=== PATIENT | female | born 1960 | race Caucasian/White ===

== ENCOUNTER 2021-06-02 10:40 | Outpatient (CLI) | payer OTHER, SELFPAY ==
--- NOTE | ~2021-06-02 | MM_ITS ---
EXAMINATION: MM screening miryam BI w augusto HISTORY: Screening TECHNIQUE: Craniocaudal and mediolateral oblique 3-D tomosynthesis images were obtained and synthetic 2-D images were generated. CAD analysis was submitted and interpreted. COMPARISON: No prior mammogram is available for comparison at this institution. BREAST PARENCHYMAL COMPOSITION: There are scattered areas of fibroglandular density. FINDINGS: There is no evidence of suspicious mass, calcification, or architectural distortion to sugg est malignancy in either breast. There has been no suspicious interval change. IMPRESSION: 1. No mammographic evidence of malignancy. 2. Recommend routine screening mammography in one year. BI-RADS Category 1: Negative Reviewed, dictated and finalized at location A. [facility] TECHNICIAN
== END 2021-06-02 10:41 | disposition home or self-care (01) ==
LOC: ANHIMG 10:44
PROVIDERS: PCP Family Medicine; Visit Provider Family Medicine
DX: Z12.31 Encounter for screening mammogram for malignant neoplasm of breast (principal)
CPT/HCPCS: 77063; 77067

== ENCOUNTER 2024-07-12 12:57 | Emergency (ER) | payer OTHER, SELFPAY ==
--- NOTE | 2024-07-12 13:05 | ED_ITS ---
HPI - URI/Sore Throat General Chief Complaint: Upper Respiratory Infection Stated Complaint: cough and chest pain Source: patient Mode of arrival: ambulatory Limitations: no limitations History of Present Illness HPI Narrative: 63-year-old female presented for complaint of painful cough, sore throat, body aches and fatigue. Onset yesterday. Reports history of bronchitis and says this feels similar. Denies shortness of breath, wheezing, nausea, vomiting, diarrhea, fevers. Related Data Allergies Allergy/AdvReac Type Severity Reaction Status Date / Time No Known Allergies Allergy Verified 07/12/24 13:09 Review of Systems Review of Systems: per HPI All systems reviewed & are unremarkable except as noted in HPI and below PMFSH Comments At time of signature, I have reviewed and agree with nursing past medical, surgical, social and family history unless otherwise noted. Please see nursing chart for further information. There is no relevant family history pertinent to the presenting complaint Exam Narrative: GENERAL: Well-appearing, in no acute distress. EYES: EOMI. No redness or drainage. Conjunctivae normal. ENT: Mucous membranes pink and moist. No rhinorrhea. TMs normal bilaterally. Throat normal. Uvula midline. NECK: Normal AROM. Supple. CHEST: No respiratory distress lungs clear to all vargas. HEART: Regular rate and rhythm. SKIN: Warm, dry, no rash. Capillary refill normal. Normal skin turgor. NEURO: Alert and oriented x3. Gait steady. PSYCH: Normal affect. Course Course Emergency Course: Patient is aware of diagnosis, understands and agrees to treatment plan. Anticipatory guidance given. Patient agrees to follow-up as directed and is aware of reasons to seek care at the emergency department. Portions of this record may have been created with voice recognition software Level of Care: Express Care Visit Vital Signs Vital signs: Vital Signs Temperature 98.0 F 07/12/24 13:10 Pulse Rate 80 07/12/24 13:10 Respiratory Rate 16 07/12/24 13:10 Blood Pressure 179/95 H 07/12/24 13:10 Pulse Oximetry 98 07/12/24 13:10 Oxygen Delivery Room Air 07/12/24 13:10 Temperature 98.0 F 07/12/24 13:10 Pulse Rate 80 07/12/24 13:10 Respiratory Rate 16 07/12/24 13:10 Blood Pressure 179/95 H 07/12/24 13:10 Pulse Oximetry 98 07/12/24 13:10 Oxygen Delivery Room Air 07/12/24 13:10 MDM - URI/Sore Throat MDM Narrative Medical decision making narrative: POS flu. Discussed physical exam findings. Advised supportive measures and signs/symptoms to go to the ER. Pt is appropriate for outpt treatment and f/u. Differential Diagnosis Differential diagnosis: Likely upper respiratory infection, sinusitis, viral infection, bronchitis, influenza and pharyngitis Discharge Plan Discharge Clinical Impression: Influenza Patient Disposition: Home, Self-Care Condition: Stable Instructions: Influenza (ED) Additional Instructions: Influenza positive You should avoid crowds until you are fever free for 24 hours without the use of fever reducing medications, or the symptoms are improved Rest. Drink plenty of fluids. Tylenol 1000mg every 8 hours as needed for pain/fever Recommend Flonase spray and Zyrtec (or Claritin/Elyssa) for sinus pressure/congestion over the counter Cough syrup may cause drowsiness; avoid driving or take it at night time. Follow up with your primary care provider as needed Go to the ER for worsening symptoms or concerns Patient Language: Singaporean Prescriptions: New prednisone 50 mg tablet 50 mg PO DAILY Qty: 5 0RF albuterol sulfate 90 mcg/actuation HFA aerosol inhaler 2 inh inhalation QID PRN (Reason: shortness of breath or wheezing) Qty: 8.5 0RF Follow-up/Referrals: PHYSICIAN,TENSILE TESTER [Primary Care Provider] -
[2024-07-12 13:10] VITALS: BP 179/95; PULSE 80; RESP 16; TEMP 36.7; O2SAT 98
[2024-07-12 13:37] LABS: EDCOVIDSCREEN Negative (Negative); EDINFLUASCREEN Positive (Negative); EDINFLUBSCREEN Negative (Negative)
--- OUTSIDE RECORDS SUMMARY | 2024-07-12 15:25 | XMS_ITS | Encounter Summary ---
Author Organization [facility] Address [address] [place] [address] Care Team Providers Care Artificial Breeding Distributor Name Role Phone William Lea MD Primary Care Provider [phone] Priscilla Rice MD Primary Care Provider Reason for Referral * Surgical (Routine) - Closed Specialty Diagnoses / Procedures Referred By Contjasmyn t Referred To Contact Procedures Case request operating room: INJECTION EPIDURAL STEROID CERVICAL [id number] Amanda Cortez MD [facility] [address] [place] [address] Phone: tel: fax: Referral ID Status Reason Start Date Expiration Date Visits Re quested Visits Authorized [id number] Closed 01/01/2019 02/02/2020 1 1 Encounter Details Date Type Department Care Team (Late st Contact Info) Description 01/01/2019 Prep for Procedure [facility] [place], [place] [id number] Amanda Cortez MD [facility] [address] [place] [id number] Social History Tobacco Use Types Packs/Day Years Used Date Smoking Tobacco: Never Smokeless Tobacco: Never Alcohol Use Standard Drinks/Week Comments No 0 (1 standard drink = 0.6 oz pur e alcohol) Comments No Sex and Gender Information Value Date Recorded Sex Assigned at Not on file Legal Sex Female 7:45 PM CDT Gender Identity Not on file Sexual Orientation Not on file 

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
--- OUTSIDE RECORDS SUMMARY | 2024-07-12 15:25 | XMS_ITS | Data Portability ---
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 Discussed etiology of condition Continue with alternative lacing technique to avoid pressure to the area, done for her to her shoes Continue with supportive shoes. she is to try to wear her custom foot orthotics, or an OTC insert from a running shoe store recommened [employer], printed locations that sell them 1 cc of 0.25% sensorcaine 1 CC of Triamcilone 40 to right left foot TMT 2 Discussed icing to the area Follow up in 6 weeks [id number] [email or web address] Not available 03/28/2021 17:11:36 Plan of Treatment Reminders Order Date Submit Date Provider Last Modified By Organization Details Last Modified Time Details Appointments None recorded. Lab pap, IG + HR HPV 2022 023 [facility], [address], [address], [place], [address], 3 17:11:01 drug screen, 14 drugs (detectime d), urine 2022 023 [facility], [address] [address], [place], [address], 3 11:14:19 BMP, serum or plasma 2022 023 [facility], [address], [place], [address], 3 01:07:33 lipid panel, serum 2022 023 [facility], [address], [address], [place], [address], 3 11:14:18 CBC w/ auto diff 2022 023 [facility], [address], [address], [place], [address], 3 01:07:33 HbA1c (hemoglobi n A1c), blood 2022 023 [facility], [address], [address], [place], [address], 3 11:14:19 TSH, ultra-sens itive, serum 2022 023 [facility], [address], [address], [place], [address], 3 11:14:17 CMP, serum or plasma 2020 021 [facility], [address], [address], [place], [address], 1 17:00:19 CBC w/ auto diff 2020 021 [facility], [address], [address], [place], [address], 17:00:18 lipid panel, serum 2020 021 [facility], [address], [address], [place], [address], 17:00:19 HbA1c (hemoglobi n A1c), blood 2020 021 [facility], [address], [address], [place], [address], 1 17:00:18 vitamin D, 25-hydroxy , total, serum 2020 021 [facility], [address], [place], [address], 17:00:19 unlisted lab - TSH w/reflex 2020 [facility], [address], [address], [place], [address], 17:00:18 Referral otolaryngo logist referral - Please eval and treat 62 year old female with violaceous mass under tongue x 3-4 months. 2022 023 [facility], [address], [place], [address], 3 14:46:42 Procedures None recorded. Surgeries None recorded. Imaging CT, chest + abdomen + pelvis, w/wo contrast - epigastric bulge, abd pain. 2022 023 [facility] (Imaging), [address] [facility] [address], [place], [address], 3 10:16:21 MAMMO, screening, digital, bilateral 2022 023 [facility] (Imaging), [address], [place], [address], 3 11:20:44 Medication Orders amlodipine 5 mg tablet [address] [facility], [address] [facility] [address], [place], [address], 3 11:22:06 amlodipine 2.5 mg tablet 2022 023 [email or web address] [facility], [address] [facility] , [place], [address], 3 14:13:01 tramadol 50 mg tablet 2022 023 [email or web address] [facility], [address] [facility] [address], [place], [address], 3 15:05:43 Sensorcain e 0.5 % (5 mg/mL) injection solution 2020 021 [email or web address] Not available 3 10:48:41 Sensorcain e 0.5 % (5 mg/mL) injection solution 2020 021 [email or web address] Not available 3 10:48:41 Kenalog 40 mg/mL suspension for injection 2020 021 [email or web address] Not available 3 10:48:39 Kenalog 40 mg/mL suspension for injection 2020 021 [email or web address] Not available 3 10:48:39 Patient TargetsNo targets recorded. 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 Referring Physician: Linda Maradiaga, Hospital Social Worker, Encounter Date: 01/21/2023 Results Created Date Observation Date Name Description Value Unit Range Abnormal Flag Note LastModifiedBy Organization Detail LastModifiedTime 01/22/20 23 01/22/2023 BASIC METAB OLIC PANEL (8) glucose 93 mg/dL 70-99 Not Available [facility] [address] [place], [address], 01/22/2023 01:07:32 01/22/20 23 01/22/2023 BASIC METAB OLIC PANEL (8) BUN 20 mg/dL 8-27 Not Available [facility] [address] [place], [address], 01/22/2023 01:07:32 01/22/20 23 01/22/2023 BASIC METAB OLIC PANEL (8) creatinine 0.76 mg/dL 0.76-1 .27 Not Available [facility] [address] [place], [address], 01/22/2023 01:07:32 01/22/20 23 01/22/2023 BASIC METAB OLIC PANEL (8) eGFR 90 >=60 Units for eGFR value s are mL/mi n/1.7 3 The eGFR Calcu latio n has not been valid ated for patie nts under the age of 18. If test resul ts are displ ayed for a patie nt under the age of 18, disre eleanor that value . Not Available [facility] [address] [place], [address], 01/22/2023 01:07:32 01/22/20 23 01/22/2023 BASIC METAB OLIC PANEL (8) BUN/creatini ne ratio 27 10-28 Not Available [facility] [address] [place], [address], 01/22/2023 01:07:32 01/22/20 23 01/22/2023 BASIC METAB OLIC PANEL (8) sodium 143 mmol/ L 134-14 4 Not Available [facility] [address] [place], [address], 01/22/2023 01:07:32 01/22/20 23 01/22/2023 BASIC METAB OLIC PANEL (8) potassium 4.3 mmol/ L 3.5-5. 2 Not Available [facility] [address] [place], [address], 01/22/2023 01:07:32 01/22/20 23 01/22/2023 BASIC METAB OLIC PANEL (8) chloride 102 mmol/ L 96-106 Not Available [facility] [address] [place], [address], 01/22/2023 01:07:32 01/22/20 23 01/22/2023 BASIC METAB OLIC PANEL (8) carbon dioxide, total 26 mmol/ L 20-29 Not Available [facility] [address] [place] [address], [address], 01/22/2023 01:07:32 01/22/20 23 01/22/2023 BASIC METAB OLIC PANEL (8) calcium 9.8 mg/dL 8.7-10 .3 Not Available [facility] [address] [place] [address], [address], 01/22/2023 01:07:32 01/22/20 23 01/21/2023 CBC WITH DIFFE RENTI AL/PL ATELE T WBC 6.0 x10e3 /uL 3.4-10 .8 Not Available [facility] [address] [place], [address], 01/22/2023 01:07:33 01/22/20 23 01/21/2023 CBC WITH DIFFE RENTI AL/PL ATELE T RBC 4.13 x10e6 /uL 3.77-5 .28 Not Available [facility] [address] [place] [address], [address], 01/22/2023 01:07:33 01/22/20 23 01/21/2023 CBC WITH DIFFE RENTI AL/PL ATELE T hemoglobin 12.9 g/dL 11.1-1 5.9 Not Available [facility] [address] [place], [address], 01/22/2023 01:07:33 01/22/20 23 01/21/2023 CBC WITH DIFFE RENTI AL/PL ATELE T hematocrit 40.0 % 34.0-4 6.6 Not Available [facility] [address] [place], [address], 01/22/2023 01:07:33 01/22/20 23 01/21/2023 CBC WITH DIFFE RENTI AL/PL ATELE T MCV 97 fL 79-97 Not Available [facility] [address] [place], [address], 01/22/2023 01:07:33 01/22/20 23 01/21/2023 CBC WITH DIFFE RENTI AL/PL ATELE T MCH 31.2 pg 26.6-3 3.0 Not Available [facility] [address] [place], [address], 01/22/2023 01:07:33 01/22/20 23 01/21/2023 CBC WITH DIFFE RENTI AL/PL ATELE T MCHC 32.3 g/dL 31.5-3 5.7 Not Available [facility] [address] [place], [address], 01/22/2023 01:07:33 01/22/20 23 01/21/2023 CBC WITH DIFFE RENTI AL/PL ATELE T RDW 12.3 % 11.5-1 4.5 Not Available [facility] [address] [place], [address], 01/22/2023 01:07:33 01/22/20 23 01/21/2023 CBC WITH DIFFE RENTI AL/PL ATELE T platelets 297 x10e3 /uL 150-45 0 Not Available [facility] [address] [place], [address], 01/22/2023 01:07:33 01/22/20 23 01/21/2023 CBC WITH DIFFE RENTI AL/PL ATELE T neutrophils 57 % notest b. Not Available [facility] [address] [place], [address], 01/22/2023 01:07:33 01/22/20 23 01/21/2023 CBC WITH DIFFE RENTI AL/PL ATELE T lymphs 33 % notest b. Not Available [facility] [address] [place], [address], 01/22/2023 01:07:33 01/22/20 23 01/21/2023 CBC WITH DIFFE RENTI AL/PL ATELE T monocytes 8 % notest b. Not Available [facility] [address] [place], [address], 01/22/2023 01:07:33 01/22/20 23 01/21/2023 CBC WITH DIFFE RENTI AL/PL ATELE T eos 1 % notest b. Not Available [facility] [address] [place], [address], 01/22/2023 01:07:33 01/22/20 23 01/21/2023 CBC WITH DIFFE RENTI AL/PL ATELE T basos 1 % notest b. Not Available [facility] [address] [place], [address], 01/22/2023 01:07:33 01/22/20 23 01/21/2023 CBC WITH DIFFE RENTI AL/PL ATELE T neutrophils (absolute) 3.4 x10e3 /uL 1.4-7. 0 Not Available [facility] [address] [place], [address], 01/22/2023 01:07:33 01/22/20 23 01/21/2023 CBC WITH DIFFE RENTI AL/PL ATELE T lymphs (absolute) 2.0 x10e3 /uL 0.7-3. 1 Not Available [facility] [address] [place] [address], [address], 01/22/2023 01:07:33 01/22/20 23 01/21/2023 CBC WITH DIFFE RENTI AL/PL ATELE T monocytes(ab solute) 0.5 x10e3 /uL 0.1-0. 9 Not Available [facility] [address] [place] [address], [address], 01/22/2023 01:07:33 01/22/20 23 01/21/2023 CBC WITH DIFFE RENTI AL/PL ATELE T eos (absolute) 0.0 x10e3 /uL 0.0-0. 4 Not Available [facility] [address] [place] [address], [address], 01/22/2023 01:07:33 01/22/20 23 01/21/2023 CBC WITH DIFFE RENTI AL/PL ATELE T baso (absolute) 0.1 x10e3 /uL 0.0-0. 2 Not Available [facility] [address] [place] [address], [address], 01/22/2023 01:07:33 01/22/20 23 01/21/2023 CBC WITH DIFFE RENTI AL/PL ATELE T immature granulocytes 0.2 % notest b. Not Available [facility] [address] [place] [address], [address], 01/22/2023 01:07:33 01/22/20 23 01/21/2023 CBC WITH DIFFE RENTI AL/PL ATELE T immature grans (abs) 0.0 x10e3 /uL 0.0-0. 1 Not Available [facility] [address] [place] [address], [place], [address], 01/22/2023 01:07:33 01/22/20 23 01/21/2023 CBC WITH DIFFE RENTI AL/PL ATELE T NRBC 0 % 0-0 Not Available [facility] [address], [place], [address], 01/22/2023 01:07:33 01/22/20 23 01/22/2023 TSH RFX ON ABNOR MAL TO FREE T4 TSH 2.100 uIU/m L 0.450- 4.500 Not Available [facility] ([facility]) [address] [place], [address], 01/29/2023 11:14:17 01/22/20 23 01/22/2023 LIPID CASCA DE W/RFL X TO APOLI B cholesterol, total 280 mg/dL 100-19 9 above high normal Not Available [facility] ([facility]) [address] [place], [address], 01/29/2023 11:14:18 01/22/20 23 01/22/2023 LIPID CASCA DE W/RFL X TO APOLI B HDL cholesterol 54 mg/dL >39 Not Available [facility] ([facility]) [address] [place], [address], 01/29/2023 11:14:18 01/22/20 23 01/22/2023 LIPID CASCA DE W/RFL X TO APOLI B LDL/HDL ratio 2.6 ratio 0.0-3. 2 LDL/H DL Ratio Men Women 1/2 Avg.R isk 1.0 1.5 Avg.R isk 3.6 3.2 2X Avg.R isk 6.2 5.0 3X Avg.R isk 8.0 6.1 Not Available [facility] ([facility]) [address] [place], [address], 01/29/2023 11:14:18 01/22/20 23 01/22/2023 LIPID CASCA DE W/RFL X TO APOLI B non-HDL cholesterol 226 mg/dL 0-129 above high normal Not Available [facility] ([facility]) [address], [place], [address], 01/29/2023 11:14:18 01/22/20 23 01/22/2023 LIPID CASCA DE W/RFL X TO APOLI B triglyceride s 458 mg/dL 0-149 above high normal Not Available [facility] ([facility]) [address], [place], [address], 01/29/2023 11:14:18 01/22/2001/22/2023 LIPID CASCA DE W/RFL X TO APOLI B LDL chol calc ([facility]) 141 mg/dL 0-99 above high normal Not Available [facility] ([facility]) [address], [place], [address], 01/29/2023 11:14:18 01/22/20 23 01/22/2023 LIPID CASCA DE W/RFL X TO APOLI B comment: Commen t Possi ble Famil ial Hyper jose stero lemia . NANDA bran be suspe cted when fasti ng LDL jose stero l is above 189 mg/dL or non-H DL jose stero l is above 219 mg/dL . A famil y histo ry of high jose stero l and heart disea se in 1st degre e relat matti bran be colle cted. J Clin Lipid ol 2011; 5:133 -140 Not Available [facility] ([facility]) [address], [place], [address], 01/29/2023 11:14:18 01/22/2001/29/2023 COMPL IANCE DRUG BILLY SIS, UR summary report (summary) FINAL ===== ===== ===== ===== ===== ===== ===== ===== ===== ===== ===== ===== ===== === TOXAS SURE COMP DRUG BILYL SIS,U R ===== ===== ===== ===== ===== ===== ===== ===== ===== ===== ===== ===== ===== === Test Resul t Flag Units Drug Prese nt Gabap entin PRESE NT Ibupr ofen PRESE NT Lidoc araceli PRESE NT ===== ===== ===== ===== ===== ===== ===== ===== ===== ===== ===== ===== ===== === Test Resul t Flag Units Ref Range Creat inine 190 mg/dL >=20 ===== ===== ===== ===== ===== ===== ===== ===== ===== ===== ===== ===== ===== === Decla red Medic ation s: Medic ation list was not provi ded. ===== ===== ===== ===== ===== ===== ===== ===== ===== ===== ===== ===== ===== === For clini tim consu ltati on, pleas e call . ===== ===== ===== ===== ===== ===== ===== ===== ===== ===== ===== ===== ===== === Not Available [facility] ([facility]) [address], [place], [address], 01/29/2023 11:14:19 01/22/20 23 01/29/2023 COMPL IANCE DRUG BILLY SIS, UR pdf . Not Available [facility] ([facility]) [address], [place], [address], 01/29/2023 11:14:19 01/22/20 23 01/22/2023 HEMOG LOBIN A1C hemoglobin A1C 5.7 % 4.8-5. 6 above high normal Predi abete s: 5.7 - 6.4 Diabe wilfrido: >6.4 Glyce cortney contr ol for adult s with diabe wilfrido: <7.0 Not Available [facility] ([facility]) [address], [place], [address], 01/29/2023 11:14:19 02/19/20 23 02/20/2023 IGP, JULITA HPV16 /18 diagnosis: Evy RESTREPO FOR INTRA EPITH ELIAL NEO Levy OR JO QUINTERO . CELLU ANKUR CARRIZALES ES ASSOC IATED WITH ATROP HY ARE PRESE NT. Not Available [facility] ([facility]) [address], [place], [address], 02/20/2023 17:11:01 02/19/20 23 02/20/2023 IGP, JULITA HPV16 /18 specimen adequacy: Evy carlson Satis factmateusz ry for evalu ation . Endoc ervic al compo nent may not be disti nguis hed in cases of atrop hy. Not Available [facility] ([facility]) [address], [place], [address], 02/20/2023 17:11:01 02/19/20 23 02/20/2023 IGP, JULITA HPV16 /18 clinician provided ICD10: Evy carlson Z01.4 19 Not Available [facility] ([facility]) [address], [place], [address], 02/20/2023 17:11:01 02/19/20 23 02/20/2023 IGP, JULITA HPV16 /18 performed by: Evy Block s, Cytot aleyda carlson (ASCP ) Not Available [facility] ([facility]) [address], [place], [address], 02/20/2023 17:11:01 02/19/20 23 02/20/2023 IGP, JULITA HPV16 /18 . . Not Available [facility] ([facility]) [address], [place], [address], 02/20/2023 17:11:01 02/19/20 23 02/20/2023 IGP, JULITA HPV16 /18 note: Evy carlson The Pap smear is a scree ashley test desig chasity to aid in the detec tion of joi ligna nt and malig nant condi tions of the uteri ne cervi x. It is not a diagn ostic proce dure and shoul d not be used as the sole means of detec ting cervi tim cance r. Both false -posi tive and false -nega tive repor ts do occur . Not Available [facility] ([facility]) [address], [place], [address], 02/20/2023 17:11:01 02/19/20 23 02/20/2023 IGP, JULITA HPV16 /18 test methodology: Evy carlson This liqui d based ThinP rep(R ) pap test was scree chasity with the use of an image guide shant martinez. Not Available [facility] ([facility]) [address], [place], [address], 02/20/2023 17:11:01 02/19/20 23 02/20/2023 IGP, JULITA HPV16 /18 HPV other HR types Positi ve negati ve abnormal Not Available [facility] ([facility]) [address], [place], [address], 02/20/2023 17:11:01 02/19/20 23 02/20/2023 IGP, JULITA HPV16 /18 HPV 16 Negati ve negati ve Not Available [facility] ([facility]) [address], [place], [address], 02/20/2023 17:11:01 02/19/20 23 02/20/2023 IGP, JULITA HPV16 /18 HPV 18 Negati ve negati ve This nucle ic acid ampli ficat ion test detec ts fourt een high- risk HPV types : HPV16 , HPV18 and twelv e other high- risk types (31,3 3,35, 39,45 ,51,5 2,56, 58,59 ,66,6 8) witho ut diffe renti ation . Not Available [facility] ([facility]) [address], [place], [address], 02/20/2023 17:11:01 06/04/19 22 06/02/2021 MAMMO , scree ashley, bilat eral No observ ation record ed. [address] (Imaging) [address] [place] [address], [address], 06/05/2021 08:50:36 06/04/19 22 06/02/2021 MAMMO , scree ashley, bilat eral No observ ation record ed. [address] (Imaging) [address] [place] [address], [address], 06/05/2021 08:50:36 06/04/19 22 06/02/2021 MAMMO , scree ashley, bilat eral No observ ation record ed. [address] (Imaging) [address] [place] [address], [address], 06/05/2021 08:50:37 Result Notes None recorded. Problems Name Problem SNOMED Code Status Onset Date Resolution Date Notes Provider Name and Address Organization Details Recorded Time Prediabetes 361072235 Active 2022 Linda Maradiaga PA-C Attn: [place] g,[address] [facility], [place], [address], [facility] 3 14:03:22 Essential hypertension 33847566 Active 2022 DERIC Lucia Attn: Orlando prado,[address], [place], [address], [facility] 3 14:12:17 Problem Notes None recorded. Procedures Surgical History None recorded. Imaging Results Imaging Date Name Status LastModified by Organiz ation Details LastModified Time 06/02/2021 MAMMO, screening, bilateral completed [address] (Imaging) [address] [facility] [address] [place] [address], [phone], 06/05/2021 08:50:36 06/02/2021 MAMMO, screening, bilateral completed [address] (Imaging) [address] [facility] [address], [place], [address], 06/05/2021 08:50:36 06/02/2021 MAMMO, screening, bilateral completed [address] (Imaging) [address] [facility] [address], [place], [address], 06/05/2021 08:50:37 Procedure Notes None recorded. Medical Equipment None Reported. Allergies No known drug allergies Medications Name Sig Start Date Stop Date Status Note LastModified by Organization Details LastModified Time cyclobenz aprine 10 mg tablet TAKE 1 TABLET BY MOUTH THREE TIMES DAILY NEEDED 01/21 completed Not Available Not Available Not Available prednison e 10 mg tablet TAKE 1 TABLET BY MOUTH TWICE DAILY FOR 5 DAYS active Not Available Not Available No t Available gabapenti n 600 mg tablet TAKE 1 TABLET BY MOUTH THREE TIMES DAILY 01/21 completed Not Available Not Available Not Available doxycycli ne hyclate 100 mg capsule TAKE 1 CAPSULE BY MOUTH TWICE DAILY FOR 7 DAYS active Not Available Not Available No t Available atorvasta tin 20 mg tablet Take 1 tablet every day by oral route at bedtime for 90 days. active Not Available Not Available No t Available ibuprofen 800 mg tablet TAKE 1 TABLET BY MOUTH THREE TIMES DAILY AFTER A MEAL as needed for discomfo rt active Not Available Not Available No t Available gabapenti n 400 mg capsule Take 1 capsule 3 times a day by oral route. 06/14 completed Not Available Not Available Not Available amlodipin e 2.5 mg tablet TAKE 1 TABLET BY MOUTH ONCE DAILY 03/11 completed Not Available Not Available Not Available amlodipin e 5 mg tablet Take 1 tablet every day by oral route. 2022 active Not Available Not Available Not Avai lable tramadol 50 mg tablet TAKE 1 TABLET BY MOUTH THREE TIMES DAILY NEEDED active Not Available Not Available No t Available Sensorcai ne 0.5 % (5 mg/mL) injection solution Take 1 mL by injectio n route. 01/21 completed Not Available Not Available Not Available Kenalog 40 mg/mL suspensio n for injection Take 1 mL by injectio n route. 01/21 completed Not Available Not Available Not Available gabapenti n 300 mg capsule Take 1 capsule 3 times a day by oral route around the clock. 09/28 completed Not Available Not Available Not Available monteluka st 10 mg tablet TAKE 1 TABLET BY MOUTH IN THE EVENING FOR 30 DAYS active Not Available Not Available No t Available diazepam 10 mg tablet 02/15 completed Not Available Not Available Not Available methylpre dnisolone 4 mg tablets in a dose pack TAKE DIRECTED ON PACKAGE 01/21 completed Not Available Not Available Not Available Marcaine (PF) 0.25 % (2.5 mg/mL) injection solution Take 1 mL by injectio n route. 01/21 completed Administ ered by Dr. Floyd t in office Not Available Not Available Not Available Fluzone Quad (PF) 60 mcg (15 mcg x 4)/0.5 mL IM syringe PHARMACI ST ADMINIST ERED IMMUNIZA TION ADMINIST ERED AT TIME OF DISPENSI NG 10/09 completed Not Available Not Available Not Available Vitals Date Recorded Body height Heart rate Body temperature Systolic blood pressure Diastolic blood pressure Provider Name and Address Organization Details Last Updated DateTime 03/28/2021 157.48 cm 110 /min 97.3 [degF] 146 mm[Hg] 94 mm[Hg] Romina Tyson MA [facility] 1 16:31:57 Date Recorded Body height Body mass index (BMI) Body weight Oxygen saturation Oxygen saturation in Arterial blood by Pulse oximetry Heart rate Systolic blood pressure Diastolic blood pressure Provider Name and Address Organization Details Last Updated DateTime 1 157.48 cm 28.5 kg/m2 53601.4 1 g 97 % 97 % 97 /min 120 mm[Hg] 84 mm[Hg] Catalino Olguin MA [facility] 1 16:39:22 Date Recorded Body height Body mass index (BMI) Body weight Heart rate Oxygen saturation Oxygen saturation in Arterial blood by Pulse oximetry Body temperature Provider Name and Address Organization Details Last Updated DateTime 3 156.21 cm 28.3 kg/m2 87081.0 4 g 63 /min 98 % 98 % 97.6 [degF] Madeleine Robb MA [facility] 3 10:34:39 Date Recorded Systolic blood pressure Diastolic blood pressure Provider Name and Address Organization Details Last Updated DateTime 01/21/2023 138 mm[Hg] 88 mm[Hg] Linda Maradiaga PA-C Attn: Accounting,20 [address] [place], [address], [facility] 01/21/2023 15:06:00 Date Recorded Body height Body mass index (BMI) Body weight Body temperature Oxygen saturation Oxygen saturation in Arterial blood by Pulse oximetry Heart rate Systolic blood pressure Diastolic blood pressure Provider Name and Address Organization Details Last Updated DateTime 3 156.21 cm 28.4 kg/m2 39733.6 3 g 97.3 [degF] 99 % 99 % 65 /min 165 mm[Hg] 88 mm[Hg] Jose White MA [facility] 3 14:05:13 Date Recorded Systolic blood pressure Diastolic blood pressure Provider Name and Address Organization Details Last Updated DateTime 02/18/2023 190 mm[Hg] 84 mm[Hg] DERIC Lucia Attn: Accounting,[address] [place], [address], [facility] 02/18/2023 14:25:28 Date Recorded Body height Body mass index (BMI) Body weight Body temperature Heart rate Systolic blood pressure Diastolic blood pressure Provider Name and Address Organization Details Last Updated DateTime 3 156.21 cm 28.6 kg/m2 62098.2 2 g 98 [degF] 58 /min 162 mm[Hg] 80 mm[Hg] Patricia Menjivar MA [place] [facility] [place] 3 13:59:46 Date Recorded Systolic blood pressure Diastolic blood pressure Provider Name and Address Organization Details Last Updated DateTime 03/11/2023 148 mm[Hg] 76 mm[Hg] DERIC Lucia Attn: Accounting,[address] [facility], [place], [address], [place] [facility] 03/11/2023 14:11:47 Social History Question Answer Notes LastModified by Organizat ion Details LastModified Time Tobacco Smoking Status Former Smoker Quit 2006 Shannon Bateman MA [facility], [facility] 09/29/2019 15:33:49 Do You Have An Advance Directive? No Information not available 06/30/2019 What Is Your Level Of Alcohol Consumption? Occasional Information not available 06/30/2019 Are You Blind Or Do You Have Difficulty Seeing? No Information not available 10/09/2020 What Is Your Level Of Caffeine Consumption? Occasional Information not available 06/30/2019 How Much Tobacco Do You Chew? None Information not available 06/30/2019 In The 14 Days Before Symptom Onset, Have You Had Close Contact With A Laboratory-confir med COVID-19 While That Case Was Ill? No Information not available 10/09/2020 In The 14 Days Before Symptom Onset, Have You Had Close Contact With A Person Who Is Under Investigation For COVID-19 While That Person Was Ill? No Information not available 10/09/2020 Have You Been To An Area Known To Be High Risk For COVID-19? No Information not available 10/09/2020 Are You Currently Employed? Yes Information not available 06/30/2019 Are You Deaf Or Do You Have Serious Difficulty Hearing? No Information not available 10/09/2020 What Type Of Diet Are You Following? REGULAR Information not available 06/30/2019 Which Illicit Or Recreational Drugs Have You Used? None Information not available 06/30/2019 Do You Or Have You Ever Used E-cigarettes Or Vape? Never Used Electronic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
== END 2024-07-12 13:39 | disposition home or self-care (01) ==
PROVIDERS: Emergency Provider Nurse Practitioner Family; Referring Provider Emergency Medicine
DX: J10.1 Influenza due to other identified influenza virus with other respiratory manifestations (principal); Z20.822 Contact with and (suspected) exposure to COVID-19; M19.90 Unspecified osteoarthritis, unspecified site
CPT/HCPCS: 87426; 87804; 99213; G0463